=== PATIENT | male | born 1965 | race Caucasian/White ===

== ENCOUNTER → 2021-10-31 | Outpatient (CLI) | payer MEDICARE, BC ==
[~2021-10-31] MED LIST: AMLODIPINE BESYL5 MG PO; ASPIRIN 325MG325 MG PO; CHLORTHALIDONE25 MG PO; CLONAZEPAM1 MG PO; CYCLOBENZAPRINE10 MG PO; HYDRALAZINE HCL25 MG PO; HYDROCODON-ACE1 EAC6 PO; IBUPROFEN800 MG PO; ISORDIL TAB 2020 MG PO; LISINOPRIL20 MG PO; NAPROXEN500 MG PO; NORCO 10-325 T1 EACH PO; ROBAXIN 750 MG750 MG PO; ULTRAM50 MG PO
== END ==
LOC: RAD 15:24
DX: M54.2 Cervicalgia (principal)
CPT/HCPCS: 72040

== ENCOUNTER → 2022-06-20 | Outpatient (CLI) | payer BC, MEDICARE | LOC: RAD 11:23 | DX: M47.896 Other spondylosis, lumbar region (principal); K59.00 Constipation, unspecified | CPT/HCPCS: 72100 ==